=== PATIENT | male | born 1995 | race Two or more races ===

== ENCOUNTER 2021-07-29 01:40 | Emergency (ER) | payer MEDICAID ==
[~2021-07-29] VITALS: Ht 177.8 cm; Wt 62.0 kg
[2021-07-29 01:46] VITALS: BP 100/60
== END 2021-07-29 02:40 | disposition home or self-care (01) ==
LOC: ER 02:09
DX: F12.10 Cannabis abuse, uncomplicated (principal); F43.9 Reaction to severe stress, unspecified; I49.9 Cardiac arrhythmia, unspecified
CPT/HCPCS: 82962; 93005; 99281; 99282; 99283